=== PATIENT | male | born 1945 | race Caucasian/White ===

== ENCOUNTER 2019-10-31 08:58 | Outpatient (CLI) | payer MEDICARE, OTHER ==
--- NOTE | 2019-10-31 10:21 | MRI ---
MRI CERVICAL SPINE WITHOUT CONTRAST: HISTORY: Cervical radiculopathy. Cervical spinal stenosis. Right shoulder pain.. COMPARISON: None. FINDINGS: Appropriate T1 marrow signal intensity of the cervical vertebra. Cervical spine vertebral body height is maintained. No fracture. Incomplete segmentation at C2-C3. Prominent osteophytes at C4-C5, C5-C6 and to a lesser extent at C6-C7. Remote Schmorl's node along the superior endplate of C7. Visualized brain parenchyma, cervicomedullary junction, cervical cord and the upper thoracic cord hav e a normal size and signal intensity. C2-C3: No significant central canal stenosis. Mild right foraminal narrowing due to uncovertebral hyp ertrophy. Patent left neural foramen. C3-C4: Desiccation with mild loss of disc space height. Broad-based discussed by complex. Severe cent ral canal stenosis. Moderate to severe bilateral neural foraminal narrowing due to uncovertebral hypertrophy. C4-C5: Disc desiccation with mild loss of disc space height. Broad-based discussed by complex abuts t he thecal sac. Subarachnoid space is maintained. Mild to moderate central canal stenosis. Moderate bilateral foraminal narrowing due to uncovertebral hypertrophy. C5-C6: Disc desiccation with mild loss of disc space height. Central/right paracentral disc osteophyt e complex. Mild mass effect upon the right hemicord. Mild central canal stenosis. Mild to moderate right and left neural foraminal narrowing due to uncovertebral hypertrophy. C6-C7: Broad-based discussed by complex abuts the thecal sac. Subarachnoid space is maintained. Mild central canal stenosis. [id number] bilateral foraminal narrowing due to uncovertebral hypertrophy. C7-T1: No significant central canal stenosis or significant neural foraminal narrowing. IMPRESSION: 1. Severe central canal stenosis at C3-C4. 2. Multilevel neural foraminal narrowing as detailed above. Transcribed Date/Time: 10/31/2019 12:14 PM
== END 2019-10-31 08:59 | disposition home or self-care (01) ==
LOC: TBSIIMAG 08:58
PROVIDERS: ATTEND Neurological Surgery
DX: M54.12 Radiculopathy, cervical region (principal); M48.02 Spinal stenosis, cervical region
CPT/HCPCS: 72141

== ENCOUNTER 2021-02-25 13:21 | Outpatient (CLI) | payer MEDICARE, OTHER | END 2021-02-25 13:22 | disposition home or self-care (01) | LOC: BICRAD 13:21 | PROVIDERS: ATTEND Thoracic Surgery (Cardiothoracic Vascular Surgery) | DX: J90 Pleural effusion, not elsewhere classified (principal); I51.7 Cardiomegaly | CPT/HCPCS: 71046 ==